=== PATIENT | female | born 1965 | race Caucasian/White ===

== ENCOUNTER 2021-08-23 13:18 | Emergency (ER) | payer OTHER ==
[~2021-08-23] VITALS: Ht 162.6 cm; Wt 68.0 kg
[2021-08-23 13:28] VITALS: BP_SYST 135
[2021-08-23 14:00] VITALS: BP_SYST 130
== END 2021-08-23 14:10 | disposition home or self-care (01) ==
LOC: SED 13:18
DX: S52.532A Colles' fracture of left radius, initial encounter for closed fracture (principal); W18.39XA Other fall on same level, initial encounter; Y93.89 Activity, other specified; Y92.89 Other specified places as the place of occurrence of the external cause; Y99.8 Other external cause status
CPT/HCPCS: 99283